=== PATIENT | male | born 1985 | race Caucasian/White ===

== ENCOUNTER 2021-02-05 15:57 | Emergency (ER) | payer OTHER ==
[~2021-02-05] VITALS: Ht 165.1 cm; Wt 67.1 kg
[2021-02-05 16:01] VITALS: BP 151/92; Ht 165.1 cm; Wt 67.1 kg
[2021-02-05 17:32] LABS: microscopic required? NO
[2021-02-05 17:46] LABS: UA SPECIFIC GRAVITY 1.015 (1.005-1.035); urine erythrocyte NEGATIVE (NEGATIVE)
[2021-02-05] MEDS ORDERED: SUPRAX400 M1 PO (17:46)
[2021-02-05] MEDS ORDERED: ZITHROMAX500 MG PO (17:46)
== END 2021-02-05 18:24 | disposition home or self-care (01) ==
LOC: ED 15:57
PROVIDERS: Specialist
DX: N45.1 Epididymitis (principal)